=== PATIENT | male | born 1940 | race Caucasian/White ===

== ENCOUNTER 2020-03-29 15:54 | Inpatient (IN) | payer MEDICARE, BC ==
[~2020-03-29] VITALS: Ht 162.6 cm; Wt 58.5 kg
[2020-03-29] MEDS ORDERED: ACETAMINOPHEN ES 500 MG TABLET ONE (16:18)
[2020-03-29] MEDS ORDERED: CEPH500C2 MT (16:25)
[2020-03-29] MEDS ORDERED: TRIH2TAB3 MT (16:25)
--- NOTE | 2020-03-29 16:28 | NUR ---
bib family for fever x 4 days. on antibiotics for possible strep throat. PT AAOX3, RR EVEN & UNLABORED. DENIES CP, SOB, DIZZINESS, N/V AT THIS TIME. PT SEEN & EVAL'D BY DR. MORENO. PLACED ON RENEWABLE ENERGY CONSULTANT, SR. MEDICATED ORDERED, PT JASWINDER WELL. WILL CONT TO MONITOR.
[2020-03-29] MEDS ORDERED: ACETAMINOPHEN 325 MG TABLET PO ONE (16:30)
[2020-03-29] MEDS ORDERED: IV NS 0.9% 1,000 ML BAG IV ONE (16:30)
[2020-03-29 16:37] LABS: APPEARANCE,URINE Slightly Cloudy (CLEAR); BILIRUBIN,URINE Negative (NEGATIVE); BLOOD, URINE Small Ery/uL (NEGATIVE); COLOR,URINE Yellow (YELLOW); KETONES,URINE Negative (NEGATIVE); LEUKOCYTE ESTERASE ,URINE Negative (NEGATIVE); NITRITE, URINE Negative (NEGATIVE); PH,URINE 5.5 (5.0-8.0); PROTEIN,URINE 100 mg/dl (NEGATIVE); UGLUCOSE Negative (NEGATIVE); UROBILINOGEN,URINE 0.2 EU/dL (0.2)
[2020-03-29 16:40] LABS: CALCIUM, SERUM 8.4 mg/dL (8.5-10.1); CARBON DIOXIDE 27 mmol/L (21-32); CHLORIDE 96 mmol/L (98-107); CREATININE 1.1 mg/dL (0.6-1.3); GLUCOSE 102 mg/dL (74-106); SODIUM SERUM 130 mmol/L (136-145); UREA NITROGEN, BLOOD 15 mg/dL (7-18)
[2020-03-29 16:46] LABS: ALANINE AMINOTRANSFERASE 13 U/L (12-78); ALBUMIN 2.6 g/dL (3.4-5.0); ALKALINE PHOSPHATASE 80 U/L (46-116); ASPARTATE AMINOTRANSFERASE 16 U/L (15-37); BILIRUBIN,DIRECT 0.1 mg/dL (0.0-0.2); BILIRUBIN,TOTAL 0.4 mg/dL (0.2-1.0); LIPASE 98 U/L (73-393); TOTAL PROTEIN, SERUM 8.6 g/dL (6.4-8.2)
[2020-03-29 16:56] LABS: BACTERIA,URINE Few /HPF (None Seen); SQUAMOUS EPITHELIAL CELL,UR Rare /HPF (None Seen); WBC,URINE 0-2 /HPF (0-3)
[2020-03-29 16:57] LABS: URINE AMORPHOUS URATE Many /HPF (None Seen)
[2020-03-29 16:58] LABS: HYALINE CASTS, URINE Rare /LPF (None Seen)
[2020-03-29 17:03] LABS: BASOPHILS # (AUTO) 0.1 /CMM (0.0-0.2); BASOPHILS % (AUTO) 0.2 % (0.0-2.0); HEMATOCRIT 30 % (39-51); HEMOGLOBIN 9.3 g/dL (13.5-17.5); LYMPHOCYTES # (AUTO) 30.9 /CMM (0.8-4.8); LYMPHOCYTES % (AUTO) 85.5 % (20.0-44.0); MEAN CORPUSCULAR HGB CONC 32 g/dl (31.0-36.0); MEAN CORPUSCULAR VOLUME 79 fL (80-96); MONOCYTES # (AUTO) 0.4 /CMM (0.1-1.30); NEUTROPHILS # (AUTO) 4.8 /CMM (1.8-8.9); NEUTROPHILS % (AUTO) 13.3 % (43.0-81.0); PLATELET COUNT (AUTO) 209 /CMM (150-450); RED BLOOD CELL COUNT(AUTO) 3.73 MIL/uL (4.5-6.0)
[2020-03-29 17:05] LABS: WHITE BLOOD COUNT (AUTO) 36.2 K/uL (4.3-11.0)
[2020-03-29] MEDS ORDERED: VANCOMYCIN 1 GM in IV D5W 250 ML IV ONE (17:30)
[2020-03-29] MEDS ORDERED: PIPERACILLIN /TAZOBACTAM 3.375 G in IV D5W 50 ML IV ONE (17:30)
[2020-03-29] MEDS ORDERED: IOHEXOL-300 100 ML VIAL IV ONE (17:36)
[2020-03-29] MEDS ORDERED: IV NS 0.9% 250 ML IV ONE (17:36)
--- NOTE | 2020-03-29 17:40 | NUR ---
PAGED [facility].
[2020-03-29 17:51] LABS: BAND % (MANUAL) 1 % (0.0-5.0); LYMPHOCYTES % (MANUAL) 80 % (16-48); NEUTROPHILS % (MANUAL) 19 (42-76)
[2020-03-29] MEDS ORDERED: GRAP50TA2 PO (18:23)
[2020-03-29] MEDS ORDERED: ASCO-352 PO (18:23)
[2020-03-29] MEDS ORDERED: CHOL100040 MT (18:23)
--- NOTE | 2020-03-29 18:45 | NUR ---
PT STABLE, NAD NOTED @ THIS TIME. DENIES CP, SOB, DIZZINESS, N/V AT THIS TIME. WILL CONT TO MONITOR.
[2020-03-29] MEDS ORDERED: IV NS 0.9% 1,000 ML IV PRN (20:19)
[2020-03-29] MEDS ORDERED: MAG HYDROX/AL HYDROX/SIMETH 30 ML UDC PO PRN (20:30)
[2020-03-29] MEDS ORDERED: ONDANSETRON HCL/PF 4 MG/2 ML VIAL IVP PRN (20:30)
[2020-03-29] MEDS ORDERED: Z GUARD REMEDY 2 OZ OINT TP PRN (20:30)
[2020-03-29] MEDS ORDERED: HYDROCODONE/APAP 5/325MG TABLET PO PRN (20:30)
[2020-03-29] MEDS ORDERED: MAGNESIUM HYDROXIDE 30 ML UDC PO PRN (20:30)
--- NOTE | 2020-03-29 20:30 | NUR ---
TELE 205-1
--- NOTE | 2020-03-29 20:53 | NUR ---
REPORT GIVEN TO GEORGES HINTON FOR CORAL.
[2020-03-29 21:00] VITALS: BP 122/58
--- NOTE | 2020-03-29 21:00 | NUR ---
BARREL ASSEMBLER OPENING NOTES RECEIVED PATIENT FROM ER VIA RNEY SAFELY TRANSFERRED TO BED, AWAKE ALERT AND ORIENTED X3, ABLE TO MAKE NEEDS KNOWN RESPIRATIONS EVEN AND UNLABORED WITH EQUAL RISE AND FALL OF CHEST, DENIES ANY PAIN AT THIS TIME, REMAINS AFEBRILE. ON FOOD OR BAGGAGE HANDLING RAMPMAN SR 70, URINAL PROVIDED AT BEDSIDE WITHIN REACH, IV SITE TO LEFT AC #18 G INTACT AND PATENT, NO REDNESS, NO INFILTRATION PRESENT, WILL INFUSE IVF ORDERED. HEAD OF BED ELEVATED FOR ASPIRATION PRECAUTIONS, BELONGINGS LIST DONE, SKIN ASSESSED, NOTED BILATERAL ELBOW SCATTERED SCABS, SCABS TO LEFT KNEE, AND SCATTERED REDNESS TO SACRAL , DENIES ANY PAIN AT THIS TIME, FLUIDS OFFERED AND TOLERATED WELL, SEIZURE PRECAUTIONS RENDERED, ALL NEEDS ATTENDED AT THIS TIME, WILL CONTINUE TO ATTEND TO NEEDS, REMAINS COMFORTABLE.
[2020-03-29] MEDS: ASCORBIC ACID 500 MG TABLET PO SCH (21:10)
[2020-03-29] MEDS: CHOLECALCIFEROL 1,000 UNIT TABLET (VIT D3) PO SCH (21:10)
[2020-03-29] MEDS ORDERED: PIPERACILLIN /TAZOBACTAM 3.375 G VIAL IV ONE (21:57)
[2020-03-29] MEDS: ENOXAPARIN SODIUM 40 MG/0.4 ML DISP.SYRIN SQ SCH (22:17)
[2020-03-29] MEDS ORDERED: TRIHEXYPHENIDYL HCL 2 MG TABLET ONE (22:19)
[2020-03-29] MEDS: TRIHEXYPHENIDYL HCL 2 MG TABLET PO SCH (22:25)
[2020-03-29] MEDS: ZOSYN IVPB 3.375 G in IV D5W 50ml IV SCH (23:08)
[2020-03-30] VITALS (8 sets, daily range): BP systolic 125–167; BP diastolic 62–93
[2020-03-30] MEDS ORDERED: PIPERACILLIN /TAZOBACTAM 3.375 G VIAL IV ONE (05:09)
[2020-03-30] MEDS: ZOSYN IVPB 3.375 G in IV D5W 50ml IV SCH ×4 (05:35→23:47)
--- NOTE | 2020-03-30 06:25 | NUR ---
SEED EXPERT CLOSING NOTES PATIENT IN BED, AWAKE ALERT AND ORIENTED X3, ABLE TO MAKE NEEDS KNOWN RESPIRATIONS EVEN AND UNLABORED WITH EQUAL RISE AND FALL OF CHEST, DENIES ANY PAIN AT THIS TIME, REMAINS AFEBRILE 98.4 ON SOAP CHIPPER SR 74, URINAL PROVIDED AT BEDSIDE WITHIN REACH 1000 OUTPUT, IV SITE TO LEFT AC #18 G INTACT AND PATENT, NO REDNESS, NO INFILTRATION PRESENT, ALL DUE MEDS GIVEN ORDERED, HEAD OF BED ELEVATED FOR ASPIRATION PRECAUTIONS, DENIES ANY PAIN AT THIS TIME, FLUIDS OFFERED AND TOLERATED WELL, SEIZURE PRECAUTIONS RENDERED, ALL NEEDS ATTENDED AT THIS TIME, WILL CONTINUE TO ATTEND TO NEEDS AND ENDORSE TO NEXT SHIFT, REMAINS COMFORTABLE.
--- NOTE | 2020-03-30 07:35 | NUR ---
RN OPENING NOTE Patient is resting in bed, A/O x3, showing no signs of acute distress or SOB, stable on RA. Tele monitor SR 80s. LAC #18g is clean and intact running NS @75mls/hour. Patient has no complaints of pain at this time. Bed is in lowest position, side rails x3 in upright position, call light is within reach, fall safety and aspiration precautions enforced. Will continue with plan of care.
[2020-03-30] MEDS: PANTOPRAZOLE 40 MG TABLET.DR PO SCH (07:39)
[2020-03-30] MEDS: TRIHEXYPHENIDYL HCL 2 MG TABLET PO SCH ×3 (08:28→16:15)
[2020-03-30] MEDS: ASCORBIC ACID 500 MG TABLET PO SCH ×2 (08:28→16:15)
[2020-03-30] MEDS: CHOLECALCIFEROL 1,000 UNIT TABLET (VIT D3) PO SCH (08:29)
[2020-03-30 08:53] LABS: CALCIUM, SERUM 8.2 mg/dL (8.5-10.1); CREATININE 0.9 mg/dL (0.6-1.3); MAGNESIUM 2.4 mg/dL (1.8-2.4); PHOSPHORUS 2.9 mg/dL (2.5-4.9); POTASSIUM 3.9 mmol/L (3.5-5.1)
[2020-03-30 09:04] LABS: THYROID STIMULATING HORMONE 0.552 uIU/mL (0.358-3.74)
[2020-03-30 09:06] LABS: HEMATOCRIT 28 % (39-51); HEMOGLOBIN 8.6 g/dL (13.5-17.5); LYMPHOCYTES # (AUTO) 20.7 /CMM (0.8-4.8); LYMPHOCYTES % (AUTO) 85.3 % (20.0-44.0); MEAN CORPUSCULAR HGB CONC 31 g/dl (31.0-36.0); MEAN CORPUSCULAR VOLUME 79 fL (80-96); MONOCYTES # (AUTO) 0.2 /CMM (0.1-1.30); MONOCYTES % (AUTO) 0.8 % (2.0-12.0); NEUTROPHILS # (AUTO) 3.4 /CMM (1.8-8.9); NEUTROPHILS % (AUTO) 13.9 % (43.0-81.0); PLATELET COUNT (AUTO) 206 /CMM (150-450); RED BLOOD CELL COUNT(AUTO) 3.48 MIL/uL (4.5-6.0); WHITE BLOOD COUNT (AUTO) 24.3 K/uL (4.3-11.0)
[2020-03-30] MEDS: ACETAMINOPHEN 325 MG TABLET PO PRN (09:47)
[2020-03-30 10:10] LABS: LYMPHOCYTES % (MANUAL) 87 % (16-48); MONOCYTES % (MANUAL) 1 % (0-11.0); NEUTROPHILS % (MANUAL) 12 (42-76)
[2020-03-30] MEDS: VANCOMYCIN HCL 0.75 GM in IV D5W 250 ML IV SCH (13:51)
--- NOTE | 2020-03-30 15:42 | NUR ---
F/U WITH LAB, NO PCR RESULTS YET. THEY WILL CALL ONCE RESULTED.
[2020-03-30 17:12] LABS: IRON, SERUM 30 ug/dl (50-175); TOTAL IRON BINDING CAPACITY 150 ug/dl (250-450)
--- NOTE | 2020-03-30 18:30 | NUR ---
RN CLOSING NOTE Patient is resting in bed, A/O x3, showing no signs of acute distress or SOB, stable on RA. Tele monitor SR 80s. LAC #18g is clean and intact s/l. IVF DC'S by due to CXR results. Patient was able to ambulate with PT today and able to ambulate with assist to bathroom. All patient needs met, all due medications given, patient kept clean and dry throughotu shift. Bed is in lowest position, side rails x3 in upright position, call light is within reach, fall safety and aspiration precautions enforced. Will endorse to second shift supervisor.
--- NOTE | 2020-03-30 19:30 | NUR ---
TELE/RN OPENING NOTES RECEIVED PATIENT IN BED RESTING. PATIENT IS ALERT AND ORIENTED X 3. NO SIGNS OF SOB OR RESPIRATORY DISTRESS NOTED. PATIENT STATES NO PAIN AT THIS TIME. PATIENT TELE MONITOR READING SR 80S. PATIENT HAS LEFT AC #18G INTACT FLUSHING WELL. PATIENT IN NO SIGNS OF DISTRESS. SAFETY MEASURES ARE IN PLACE, BED IS LOCKED AND PLACED IN THE LOWEST POSITION, SIDE RAILS UP X3. CALL LIGHT IS WITHIN REACH. WILL CONTINUE TO MONITOR THROUGH OUT SHIFT.
--- NOTE | 2020-03-30 21:45 | NUR ---
TELE/RN NOTES PATIENT REQUESTING TO SIT AT EDGE OF BED AND WOULD LIKE TO STAND. PATIENT ASSISTED TO STAND AND SIT AT EDGE OF BED. PATIENT TOLERATING SITTING AND STANDING WELL WITH ASSIST. PATIENT PUT BACK TO BED WITH ASSIST. WILL CONTINUE TO MONITOR.
[2020-03-30] MEDS: ENOXAPARIN SODIUM 40 MG/0.4 ML DISP.SYRIN SQ SCH (22:05)
[2020-03-30] MEDS: ZOLPIDEM TARTRATE 5 MG TABLET PO PRN (22:21)
--- NOTE | 2020-03-30 22:25 | NUR ---
TELE/RN PATIENT WANTED MED TO HELP WITH SLEEP FOR TONIGHT. PATIENT GIVEN AMBIEN 5 MG PO. V/S WITHIN NORMAL LIMITS. WILL CONTINUE TO MONITOR.
[2020-03-31] VITALS (7 sets, daily range): BP systolic 120–154; BP diastolic 62–86
[2020-03-31] MEDS: ZOSYN IVPB 3.375 G in IV D5W 50ml IV SCH ×3 (05:29→17:12)
--- NOTE | 2020-03-31 06:50 | NUR ---
TELE/RN CLOSING NOTES PATIENT IS IN BED SLEEP EASY TO WAKE. PATIENT IS ALERT AND ORIENTED X 3. NO SIGNS OF DISTRESS NOTED. NO SOB NO RESPIRATORY DISTRESS. TELE READING 80S SR. PATIENT HAS IV ACCESS ON LEFT AC #18 INTACT. ALL PATIENT NEEDS HAVE BEEN MET DURING SHIFT. SAFETY MEASURES ARE IN PLACE, BED IS LOCKED AND PLACED IN LOW POSITION, CALL LIGHT WITHIN REACH. WILL ENDORSE CARE TO DAY NURSE.
[2020-03-31] MEDS: PANTOPRAZOLE 40 MG TABLET.DR PO SCH (08:01)
[2020-03-31] MEDS: VANCOMYCIN HCL 0.75 GM in IV D5W 250 ML IV SCH (08:02)
--- NOTE | 2020-03-31 08:29 | NUR ---
WOUND CARE CONSULT: REVIEWED CHART, NURSING DOCUMENTATION AND PHOTOS WHICH INDICATE REDNESS TO BUTTOCKS AND MULTIPLE AREAS OF DRY ABRASIONS, SCABS AND SKIN DISCOLORATION. PRESENT ON ADMISSION. RECOMMENDATIONS MADE FOR SKIN PROTECTION. DISCUSSED WITH NURSING STAFF. WILL SEE PRN. GRACE IN AGREEMENT WITH PLAN OF CARE.
[2020-03-31 08:34] LABS: BASOPHILS % (AUTO) 0.1 % (0.0-2.0); HEMATOCRIT 29 % (39-51); LYMPHOCYTES # (AUTO) 21.7 /CMM (0.8-4.8); LYMPHOCYTES % (AUTO) 84.6 % (20.0-44.0); MEAN CORPUSCULAR HGB CONC 31 g/dl (31.0-36.0); MEAN CORPUSCULAR VOLUME 80 fL (80-96); MONOCYTES # (AUTO) 0.1 /CMM (0.1-1.30); MONOCYTES % (AUTO) 0.5 % (2.0-12.0); NEUTROPHILS # (AUTO) 3.8 /CMM (1.8-8.9); NEUTROPHILS % (AUTO) 14.8 % (43.0-81.0); PLATELET COUNT (AUTO) 235 /CMM (150-450); RED BLOOD CELL COUNT(AUTO) 3.62 MIL/uL (4.5-6.0); WHITE BLOOD COUNT (AUTO) 25.7 K/uL (4.3-11.0)
[2020-03-31] MEDS: ASCORBIC ACID 500 MG TABLET PO SCH ×2 (09:02→16:09)
[2020-03-31] MEDS: CHOLECALCIFEROL 1,000 UNIT TABLET (VIT D3) PO SCH (09:02)
[2020-03-31] MEDS: TRIHEXYPHENIDYL HCL 2 MG TABLET PO SCH ×3 (09:03→16:09)
[2020-03-31 09:28] LABS: CALCIUM, SERUM 8.4 mg/dL (8.5-10.1); MAGNESIUM 2.4 mg/dL (1.8-2.4); PHOSPHORUS 3.1 mg/dL (2.5-4.9); POTASSIUM 3.7 mmol/L (3.5-5.1)
--- NOTE | 2020-03-31 13:15 | NUR ---
RN NOTES CALLED PHARMACY AND REQUESTED ARTANE , IT IS NOT SUPPLIED IN THE CASSETTE, WILL ADMINISTER WHEN MEDICATION ARRIVES.
--- NOTE | 2020-03-31 15:49 | NUR ---
RN NOTES GABO(DAUGHTER) CALLED , SHE WANTS A CALL BACK FROM MD REGARDING HAVING PATIENT DISCHARGE HOME. MD AND CHARGE NURSE AWARE.
[2020-03-31] MEDS: ALPRAZOLAM 0.25 MG TABLET PO SCH (17:54)
--- NOTE | 2020-03-31 18:10 | NUR ---
RN CLOSING NOTES PATIENT IS IN BED AWAKE. PATIENT IS ALERT AND ORIENTED X 3. NO SIGNS OF DISTRESS NOTED. NO SOB NO RESPIRATORY DISTRESS. TELE READING 80S SR. PATIENT HAS IV ACCESS ON LEFT AC #18 INTACT. ALL PATIENT NEEDS HAVE BEEN MET DURING SHIFT. SAFETY MEASURES ARE IN PLACE, BED IS LOCKED AND PLACED IN LOW POSITION, CALL LIGHT WITHIN REACH. WILL ENDORSE CARE TO PM NURSE.
--- NOTE | 2020-03-31 19:30 | NUR ---
telephoto installer opening notes received patient in bed. a/ox3. tolerating room air. respirations are even and unlabored. no s/s sob noted. no c/o pain at this time. external tele monitor reads sinus rhythm hr 79. in no apparent distress. iv access in LAC #18 patent and saline locked. bed is low and locked, hob elevated in high fowlers, side rials up x3. call light within reach.will continue to monitor.
[2020-03-31] MEDS: ENOXAPARIN SODIUM 40 MG/0.4 ML DISP.SYRIN SQ SCH (21:24)
[2020-04-01] VITALS: BP 141/71
[2020-04-01] MEDS: ZOSYN IVPB 3.375 G in IV D5W 50ml IV SCH ×4 (00:13→17:09)
[2020-04-01] MEDS: ACETAMINOPHEN 325 MG TABLET PO PRN (00:27)
--- NOTE | 2020-04-01 00:27 | NUR ---
emergency telecommunications dispatcher note administered prn tylenol 650 mg for slight temp 99.3. will continue to monitor.
[2020-04-01] MEDS: VANCOMYCIN HCL 0.75 GM in IV D5W 250 ML IV SCH ×2 (01:07→12:28)
[2020-04-01 04:00] VITALS: BP 138/66
--- NOTE | 2020-04-01 07:28 | NUR ---
television presenter closing notes patient in bed. a/ox3. tolerating room air. no resp distress. no c/o apin t/o shift. external tele monitor reads sinus rhythm hr 70s. no distress. iv access in right wrsit #20 running tko. bed remain low and locked, hob elevated in high fowlers, side rials up x3. call light within reach.will endorse to next shift.
--- NOTE | 2020-04-01 07:35 | NUR ---
BRONZE CHASER OPENING NOTES BEDSIDE ENDORSEMENT DONE. PATIENT IS IN BED, AWAKE AND VERBALLY RESPONSIVE, A/O X3. BREATHING EVEN AND UNLABORED, NO SIGNS OF DISTRESS NOTED, NO COMPLAINT OF PAIN AT THIS TIME. ON TELE MONITOR W/ READING OF SR AT 70S. PERIPHERAL IV ON R WRIST INTACT. SAFETY MEASURES IN PLACE: BED IS LOCKED AND IN THE LOWEST POSITION, SIDE RAILS UP X3, CALL LIGHT IS WITHIN REACH. WILL CONTINUE TO MONITOR.
[2020-04-01] MEDS: PANTOPRAZOLE 40 MG TABLET.DR PO SCH (07:45)
[2020-04-01 08:00] VITALS: BP 153/78
[2020-04-01] MEDS: ASCORBIC ACID 500 MG TABLET PO SCH ×2 (08:24→16:17)
[2020-04-01] MEDS: CHOLECALCIFEROL 1,000 UNIT TABLET (VIT D3) PO SCH (08:24)
[2020-04-01] MEDS: TRIHEXYPHENIDYL HCL 2 MG TABLET PO SCH ×3 (08:24→16:17)
[2020-04-01] MEDS: ALPRAZOLAM 0.25 MG TABLET PO SCH ×2 (08:24→16:17)
[2020-04-01 09:05] LABS: D-DIMER 1.49 mg/L(FEU (0.17-0.50)
[2020-04-01 16:00] VITALS: BP 153/78
--- NOTE | 2020-04-01 18:44 | NUR ---
MS RN CLOSING NOTES PATIENT IS IN BED, AWAKE AND VERBALLY RESPONSIVE, A/O X3. BREATHING EVEN AND UNLABORED. NO ACUTE DISTRESS NOR COMPLAINT OF PAIN NOTED. D/C'D FROM TELE TODAY, NO CARDIAC DISTRESS AT THIS TIME. IV ON R WRIST INTACT AND PATENT W/ NO S/SX OF INFILTRATION. SAFETY MEASURES MAINTAINED: BED IS LOCKED AND IN LOWEST POSITION, SIDE RAILS UP X3, CALL LIGHT PLACED WITHIN REACH. WILL ENDORSE TO WINDOW SHADE INSTALLER RN FOR CORAL.
[2020-04-01 20:00] VITALS: BP 118/71
--- NOTE | 2020-04-01 20:08 | NUR ---
Ms Sujata initial notes received report from am nurse while doing our rounds and seen pt in bed awake and alert on sitting position eating no aspiration noted. He's alert oriented x3, able to ambulate with assist when he needs it. Denies any pain or any discomfort. no Signs of any distress noted. Aware where he at and how to used the call light system. kept him warm and comfortable at all times. side rails x2 up and bed in low and lock in position . place call light at reach, will continue monitoring.
[2020-04-01] MEDS: ENOXAPARIN SODIUM 40 MG/0.4 ML DISP.SYRIN SQ SCH (21:45)
[2020-04-01] MEDS: ZOLPIDEM TARTRATE 5 MG TABLET PO PRN (23:16)
--- NOTE | 2020-04-01 23:23 | NUR ---
balloon seller notes patient asked for sleep medication , ambien 5mg po given as ordered. no signs of any distress noted. patient stated after i gave his medicine "thank you for your helped. ".sponge bath rendered to helped him comfortable and keep him warm. will continue monitoring.
[2020-04-02] MEDS: ZOSYN IVPB 3.375 G in IV D5W 50ml IV SCH ×3 (00:22→12:51)
[2020-04-02] MEDS: VANCOMYCIN HCL 0.75 GM in IV D5W 250 ML IV SCH (01:28)
--- NOTE | 2020-04-02 04:00 | NUR ---
clinical data management manager notes pt woke up and noticed he's anxious and he doesn't even remember that he pulled out his IV line. re- inserted a new on his right forearm gauge 18 secured and covered with gauze. stable throughout the night only noticed he always mentioned that he always a bad dream. he also wants to changed his sleep medication to diff. kind because he's thinking that he made him anxious and confused. family also requested not to give his xanax . all due meds given and endorse to am nurse for continuity of care.
[2020-04-02 06:57] LABS: CALCIUM, SERUM 7.8 mg/dL (8.5-10.1); CREATININE 0.9 mg/dL (0.6-1.3); POTASSIUM 3.5 mmol/L (3.5-5.1)
--- NOTE | 2020-04-02 07:17 | NUR ---
MS RN OPENING NOTES BEDSIDE ENDORSEMENT DONE. PATIENT IS IN BED, AWAKE AND VERBALLY RESPONSIVE, A/O X3, ABLE TO MAKE NEEDS KNOWN. BREATHING EVEN AND UNLABORED ON ROOM AIR, NO SIGNS OF DISTRESS NOTED. NO COMPLAINT OF PAIN AT THIS TIME. PERIPHERAL IV ON R WRIST INTACT. SAFETY MEASURES IN PLACE: BED IS LOCKED AND IN THE LOWEST POSITION, SIDE RAILS UP X3, CALL LIGHT IS WITHIN REACH. WILL CONTINUE TO MONITOR.
--- NOTE | 2020-04-02 07:17 | NUR ---
ms thrill performer closing notes pt awake and alert on sitting position with side rails x2 up and breakfast served by FIELD TEST ENGINEER. endorse to am nurse.
[2020-04-02] MEDS: PANTOPRAZOLE 40 MG TABLET.DR PO SCH (07:28)
[2020-04-02 07:53] LABS: BASOPHILS % (AUTO) 0.1 % (0.0-2.0); EOSINOPHILS % (AUTO) 0.1 % (0.0-6.0); HEMATOCRIT 29 % (39-51); HEMOGLOBIN 9.2 g/dL (13.5-17.5); LYMPHOCYTES # (AUTO) 18.5 /CMM (0.8-4.8); LYMPHOCYTES % (AUTO) 86.1 % (20.0-44.0); MEAN CORPUSCULAR HGB CONC 32 g/dl (31.0-36.0); MEAN CORPUSCULAR VOLUME 79 fL (80-96); MONOCYTES # (AUTO) 0.1 /CMM (0.1-1.30); MONOCYTES % (AUTO) 0.6 % (2.0-12.0); NEUTROPHILS # (AUTO) 2.8 /CMM (1.8-8.9); NEUTROPHILS % (AUTO) 13.1 % (43.0-81.0); PLATELET COUNT (AUTO) 255 /CMM (150-450); RED BLOOD CELL COUNT(AUTO) 3.71 MIL/uL (4.5-6.0); WHITE BLOOD COUNT (AUTO) 21.6 K/uL (4.3-11.0)
[2020-04-02 07:55] LABS: EOSINOPHILS % (MANUAL) 1 % (0-4); LYMPHOCYTES % (MANUAL) 80 % (16-48); MONOCYTES % (MANUAL) 1 % (0-11.0); NEUTROPHILS % (MANUAL) 18 (42-76)
[2020-04-02 08:00] VITALS: BP 115/80
[2020-04-02] MEDS: CHOLECALCIFEROL 1,000 UNIT TABLET (VIT D3) PO SCH (08:12)
[2020-04-02] MEDS: ASCORBIC ACID 500 MG TABLET PO SCH (08:12)
[2020-04-02] MEDS: ALPRAZOLAM 0.25 MG TABLET PO SCH (08:13)
[2020-04-02] MEDS: TRIHEXYPHENIDYL HCL 2 MG TABLET PO SCH (08:13)
[2020-04-02] MEDS ORDERED: LEVO500T90 PO ×2 (10:31→12:02)
--- NOTE | 2020-04-02 13:24 | NUR ---
RN DISCHARGED NOTES PT DISCHARGED HOME WITH HOME HEALTH IN STABLE CONDITION. A/O X4. ABLE TO MAKE NEEDS KNOWN. ON ROOM AIR, BREATHING EVEN AND UNLABORED, NO SOB NOTED. V/S TAKEN, STABLE AND RECORDED. PHOTOS OF SKIN ISSUES TAKEN AND FILED IN THE CHART. ALL BELONGINGS CHECKED, COUNTED AND FORM SIGN. IV ACCESS ON RIGHT WRIST REMOVED AND APPLIED DRY DRESSING AT SITE. NAME ARMBAND REMOVED. PT REFUSED PNA VACCINE. HEALTH TEACHINGS/DISCHARGE INSTRUCTIONS GIVEN TO PT, AND DAUGHTER AND ALL VERBALIZED UNDERSTANDING. PT LEFT UNIT VIA WHEELCHAIR AT 1310 ACCOMPANIED BY ME TO LOBBY. DAUGHTER GABO AND PT'S WILL TAKE PT'S HOME. MD AND CHARGE NURSE AWARE OF DISCHARGE.
[2020-04-02 15:08] LABS: *SPE A/G RATIO 0.5 (0.7-1.7); *SPE ALBUMIN 2.5 g/dL (2.9-4.4); *SPE ALPHA-1-GLOBULIN 0.5 g/dL (0.0-0.4); *SPE ALPHA-2-GLOBULIN 0.9 g/dL (0.4-1.0); *SPE BETA GLOBULIN 0.9 g/dL (0.7-1.3); *SPE GLOBULIN, TOTAL 4.8 g/dL (2.2-3.9); *SPE M-SPIKE 2.1 g/dL (Not Observed); *SPEGAMMA GLOBULIN 2.6 g/dL (0.4-1.8)
== END 2020-04-02 13:00 | disposition home health service (06) | DRG 871 ==
LOC: ER 16:02 → TELE2 20:40 → TELE 03-31 22:10 → MED 04-01 08:29
PROVIDERS: ATTEND Internal Medicine
DX: A41.9 Sepsis, unspecified organism (principal); J18.9 Pneumonia, unspecified organism; E46 Unspecified protein-calorie malnutrition; E87.1 Hypo-osmolality and hyponatremia; C96.9 Malignant neoplasm of lymphoid, hematopoietic and related tissue, unspecified; I25.10 Atherosclerotic heart disease of native coronary artery without angina pectoris; G20 Parkinson's disease; E88.09 Other disorders of plasma-protein metabolism, not elsewhere classified; I50.9 Heart failure, unspecified; D50.9 Iron deficiency anemia, unspecified; R16.2 Hepatomegaly with splenomegaly, not elsewhere classified; Z68.22 Body mass index [BMI] 22.0-22.9, adult; D72.829 Elevated white blood cell count, unspecified; D72.820 Lymphocytosis (symptomatic); R79.89 Other specified abnormal findings of blood chemistry
CPT/HCPCS: 36415; 71045-TC; 80048-TC; 80061-TC; 80076-TC; 80202-TC; 81000-TC; 82728-TC; 82784; 83540-TC; 83605-TC; 83615-TC; 83690-TC; 83735-TC; 84100-TC; 84155; 84165; 84443-TC; 84484-TC; 85025-TC; 85396; 86334; 87040-TC; 87081-TC; 87086-TC; 93307-TC; 97116-TC; 97530-TC; G0378; J1650; J2543; J3370; J7030; J7050; J7060; Q9967; U0003-CS